=== PATIENT | female | born 1980 | race Two or more races ===

== ENCOUNTER 2024-03-29 22:29 | Emergency (ER) | payer OTHER ==
[~2024-03-29] VITALS: Ht 160 cm; Wt 77.1 kg
[2024-03-29] MEDS ORDERED: ACETAMINOPHEN 500 MG GEL..CAP PO ONE (23:06)
[2024-03-30] MEDS ORDERED: ACETAMINOPHEN 500 MG GEL..CAP PO STA (01:34)
[2024-03-30] MEDS ORDERED: KETOROLAC TROMETHAMINE 60 MG VIAL IM STA (01:34)
[2024-03-30] MEDS ORDERED: KETOROLAC TROMETHAMINE 60 MG VIAL IM ONE (02:02)
[2024-03-30 02:18] LABS: HEMATOCRIT 39.8 % (36.0-45.00); HEMOGLOBIN 13.1 g/dL (12.0-15.00); MEAN CORPUSCULAR HGB CONC 32.9 g/dl (32.0-36.0); PLATELET COUNT 246 K/uL (150-450); RED BLOOD COUNT 4.85 M/uL (4.00-6.00); RED CELL DISTRIBUTION WIDTH 13.2 % (11.5-14.5)
== END 2024-03-30 03:24 | disposition home or self-care (01) ==
LOC: ER 22:31
DX: J10.1 Influenza due to other identified influenza virus with other respiratory manifestations (principal); Z20.822 Contact with and (suspected) exposure to COVID-19